=== PATIENT | male | born 1975 | race Caucasian/White ===

== ENCOUNTER 2017-01-03 17:09 | Emergency (ER) | payer BC ==
[~2017-01-03] VITALS: Ht 172.7 cm; Wt 68.0 kg
[~2017-01-03 17:09] MED LIST: IBU-8800 MG PO
[2017-01-03] MEDS ORDERED: NORCO 5-325 TA1 EACH PO (18:44)
== END 2017-01-03 18:47 | disposition home or self-care (01) ==
LOC: ED 17:09
DX: S43.102A Unspecified dislocation of left acromioclavicular joint, initial encounter (principal); F17.200 Nicotine dependence, unspecified, uncomplicated; V10.0XXA Pedal cycle driver injured in collision with pedestrian or animal in nontraffic accident, initial encounter; Y93.55 Activity, bike riding; Y92.89 Other specified places as the place of occurrence of the external cause; Y99.9 Unspecified external cause status

== ENCOUNTER → 2017-03-11 | Outpatient (CLI) | payer BC ==
[~2017-03-11] MED LIST changes: +NORCO 5-325 TA1 EACH PO
== END | disposition home or self-care (01) ==
LOC: ORTHO 15:36
DX: S43.52XD Sprain of left acromioclavicular joint, subsequent encounter (principal); X58.XXXD Exposure to other specified factors, subsequent encounter